=== PATIENT | male | born 1950 | race Caucasian/White ===

== ENCOUNTER 2017-11-29 08:40 | Emergency (ER) | payer MEDICARE, BC ==
[2017-11-29 08:49] VITALS: BP 169/109
[2017-11-29] MEDS ORDERED: Lidocaine/EPINEPHrine/Tetracaine Soln 1 ML TOP STA (09:35)
[2017-11-29] MEDS ORDERED: Lidocaine/EPINEPHrine/Tetracaine Soln 1 ML ONE (09:40)
--- NOTE | 2017-11-29 10:54 | EDM.PDOC ---
ED HPI GENERAL MEDICAL PROBLEM - General Chief Complaint: Laceration Stated Complaint: LEFT HAND LAC Time Seen by Provider: 11/29/17 09:28 Source of Information: Reports: Patient, Family () History Limitations: Reports: No Limitations - History of Present Illness INITIAL COMMENTS - FREE TEXT/NARRATIVE: The patient states that he was cutting some slipped ties with his freshly sharpened pocketknife around 08:00 this morning, when he accidentally cut the volar aspect of his left wrist. Patient is otherwise uninjured. The patient's last tetanus vaccination was approximately 2013. Patient's PCP is Dr. Armas. Left Hand Pain Score (Numeric/FACES): 2 - Related Data Allergies Allergy/AdvReac Type Severity Reaction Status Date / Time No Known Allergies Allergy Verified 11/29/17 08:49 Home Meds: Home Meds Lisinopril/Hydrochlorothiazide [Lisinopril-Hctz 10-12.5 mg Tab] 0.5 tab PO DAILY 02/23/15 [History] Past Medical History Cardiovascular History: Reports: Hypertension Oncologic (Cancer) History: Reports: Prostate - Past Surgical History Male Surgical History: Reports: Prostatectomy Social & Family History - Tobacco Use Smoking Status *Q: Never Smoker - Caffeine Use Caffeine Use: Reports: Coffee - Alcohol Use Alcohol Use History: Yes Days Per Week of Alcohol Use: 4 Number of Drinks Per Day: 2 Total Drinks Per Week: 8 Alcohol Use Frequency: Socially - Recreational Drug Use Recreational Drug Use: No - Living Situation & Occupation Living situation: Reports: , with Spouse Occupation: Employed ([employer]) ED ROS GENERAL - Review of Systems Review Of Systems: ROS reveals no pertinent complaints other than HPI. ED EXAM, SKIN/RASH Exam: See Below Exam Limited By: No Limitations General Appearance: Alert, WD/WN, No Apparent Distress Extremities: Other (Proximally 3.5 cm linear laceration perpendicular to the axis of the arm located at the volar aspect of the left wrist. The wound is full -thickness subcutaneous, however, appears to miss all flexor tendons and any significant blood vessels, as there is minimal bleeding. Neurovascular status of the left lower extremity is intact.) ED SKIN PROCEDURES - Laceration/Wound Repair Left Wrist Lac/Wound length In cm: 3.5 Appearance: Subcutaneous, Linear, Clean Distal NVT: Neuro & Vascular Intact, No Tendon Injury Anesthetic Type: Topical (LET) Skin Prep: Providone-Iodine (Betadine) Exploration/Debridement/Repair: Wound Explored, In a Bloodless Field, Explored to Base, No Foreign Material Found, Wound Margins Revised Closed with: Sutures Suture Size: 3-0 # of Sutures: 9 Suture Type: Nylon, Running Sterile Dressing Applied: Nurse Tetanus Status Addressed: Yes Complications: No Course - Vital Signs Last Recorded V/S: Last Vital Signs Temp 35.9 C 11/29/17 08:45 Pulse 54 L 11/29/17 08:45 Resp 16 11/29/17 08:45 BP 169/109 H 11/29/17 08:45 Pulse Ox 96 11/29/17 08:45 - Orders/Labs/Meds Meds: Medications Discontinued Medications Generic Name Dose Route Start Last Admin Trade Name Gunjan PRN Reason Stop Dose Admin Lidocaine/Tetracaine 2 ml 11/29/17 09:35 11/29/17 09:37 Let Soln TOP 11/29/17 09:36 2 ml ONETIME STA Administration Lidocaine/Tetracaine Confirm 11/29/17 09:40 11/29/17 10:07 Let Soln Administered 11/29/17 09:41 Not Given Dose 2 ml .ROUTE .STK-MED ONE - Re-Assessments/Exams Free Text/Narrative Re-Assessment/Exam: 11/29/17 10:49 Following adequate local anesthesia with LET, the patient's left wrist laceration was closed with 9 running sutures, using 3-0 Ethilon. The patient tolerated the procedure well. His tetanus vaccinations are up-to-date. Antibiotics are not indicated. Departure - Departure Time of Disposition: 10:50 Disposition: Home, Self-Care 01 Condition: Good Clinical Impression: Laceration of left wrist - Discharge Information Instructions: Laceration Care, Adult Referrals: Israel Bean MD [Primary Care Provider] - Forms: ED Department Discharge Additional Instructions: You were seen in the emergency room after accidentally cutting your left wrist. Your wound was closed with 9 sutures. Keep the wound clean with ordinary soap and water. Pat dry, then apply a clean bandage, daily. Change the bandage if it becomes dirty or wet. We do not recommend you apply antibiotic ointment. The sutures should be ready for removal by December. They can be removed at the walk-in clinic, by a nurse at your doctor's office, or back in the ER. If any other problems, including concern about infection, please do not hesitate to return to the ER.
== END 2017-11-29 11:00 | disposition home or self-care (01) ==
LOC: JD.ED 08:40
DX: S61.512A Laceration without foreign body of left wrist, initial encounter (principal); Z79.899 Other long term (current) drug therapy; W26.0XXA Contact with knife, initial encounter
CPT/HCPCS: 12002; 99283; A9270

== ENCOUNTER 2021-02-28 15:22 | Emergency (ER) | payer MEDICARE, BC ==
[2021-02-28 16:16] VITALS: BP 141/95; PULSE 50
--- NOTE | 2021-02-28 16:54 | EDM.PDOC ---
ED HPI GENERAL MEDICAL PROBLEM - General Chief Complaint: Head Injury Stated Complaint: LT EYE COMPLAINT Time Seen by Provider: 02/28/21 16:34 Source of Information: Reports: Patient, Family History Limitations: Reports: No Limitations - History of Present Illness INITIAL COMMENTS - FREE TEXT/NARRATIVE: Patient presents after fall off his horse injuring his left eye and forehead. This happened around noon today cannot remember exactly how his horse was to bucked and threw him off. He was not wearing a helmet. No loss of consciousness has no major headache he does have some neck pain although he has had some chronic neck pain and occasionally gets chiropractic adjustments. Otherwise was feeling well today no chest pain shortness of breath breathing problems. Denies any chest pain from the trauma no extremity pain such as shoulders elbows wrists hands pelvis hips knees and ankles. He is able to walk without difficulty. The final reason he came in was when he blows his nose he all of a sudden had swelling around the periorbital area. No vision loss no double vision no facial numbness no numbness to the teeth no malalignment or teeth pain. - Related Data Allergies Allergy/AdvReac Type Severity Reaction Status Date / Time No Known Allergies Allergy Verified 02/28/21 16:16 Home Meds: Home Meds cephALEXin [Keflex] 500 mg PO Q8H #21 cap 02/28/21 [Rx] hydroCHLOROthiazide [Hydrochlorothiazide] 12.5 mg PO DAILY 02/28/21 [History] lisinopriL [Lisinopril] 10 mg PO DAILY 02/28/21 [History] Past Medical History Cardiovascular History: Reports: Hypertension Other Musculoskeletal History: arthritis Oncologic (Cancer) History: Reports: Prostate - Past Surgical History Male Surgical History: Reports: Prostatectomy Social & Family History - Tobacco Use Tobacco Use Status *Q: Never Tobacco User Second Hand Smoke Exposure: No - Caffeine Use Caffeine Use: Reports: Coffee - Recreational Drug Use Recreational Drug Use: No - Living Situation & Occupation Living situation: Reports: , with Spouse Occupation: Employed ([employer]) ED ROS GENERAL - Review of Systems Review Of Systems: See Below Constitutional: Reports: No Symptoms. Denies: Diaphoresis HEENT: Reports: Glasses, Hearing Loss. Denies: Dental Pain, Ear Pain, Eye Discharge, Nosebleed, Rhinitis, Sinus Problem, Throat Pain, Throat Swelling, Vision Change Respiratory: Denies: Shortness of Breath, Cough Cardiovascular: Denies: Chest Pain, Dyspnea on Exertion, Lightheadedness GI/Abdominal: Denies: Abdominal Pain, Diarrhea, Nausea, Vomiting : Denies: Flank Pain Musculoskeletal: Reports: Neck Pain. Denies: Shoulder Pain, Arm Pain, Back Pain, Hand Pain, Leg Pain, Foot Pain, Joint Pain Neurological: Denies: Confusion, Dizziness, Headache, Numbness, Paresthesia, Tingling Psychiatric: Reports: No Symptoms ED EXAM, HEAD INJURY - Physical Exam Exam: See Below Exam Limited By: No Limitations General Appearance: Alert, WD/WN, No Apparent Distress Head: Normocephalic, Facial Swelling, Sinus Tenderness, Facial Tenderness, Other (Subcutaneous air around the periorbital area and the left pupils otherwise equal round and reactive, no nystagmus no diplopia tenderness in the superior orbital rim and some of the zygoma no crepitus noted there). No: Scalp Hematoma, Scalp Tenderness, Active Bleeding, Cooper's Sign, Facial Lacerations, Raccoon Eyes Nexus Criteria: No: Posterior, Midline Cervical Tenderness, Altered Level of Consciousness, Focal Neurological Deficit, Painful Distraction Injuries Ears: Normal External Exam, Cerumen Impaction Nose: Normal Inspection, No Blood. No: Nasal Tenderness, Septal Deformity, Septal Hematoma, Septal Perforation, Active Bleeding Throat/Mouth: Normal Inspection, Normal Lips, Normal Teeth, Normal Gums, Normal Oropharynx, Normal Voice. No: Trismus Neck: Limited Range of Motion, Muscle Spasm, Paraspinous Muscle Tender, Tender Lateral. No: Spinous Processes Tender, Tender Midline Respiratory: No Respiratory Distress, Lungs Clear, Normal Breath Sounds Cardiovascular: Normal Peripheral Pulses, Regular Rate, Rhythm, No Edema, No JVD GI/Abdominal Exam: Normal Bowel Sounds, Soft, Non-Tender Back Exam: Normal Inspection Extremities: Normal Inspection, Non-Tender. No: Joint Swelling Neurologic: tipple supervisor II-XII nml As Tested, No Motor/Sensory Deficits, Normal Mood/Affect, Oriented x 3 Course - Vital Signs Text/Narrative:: Head injury fall off a horse trauma alert called, no need for plain films we will send him for CT head CT maxillofacial and CT C-spine. Suspect he must of cracked his maxilla or a type of facial fracture based on the subcutaneous emphysema when he blows his nose. Other indication for any other chest trauma abdominal trauma flank trauma or other extremity injury Last Recorded V/S: Last Vital Signs Temp 98 F 02/28/21 16:14 Pulse 50 L 02/28/21 16:14 Resp 16 02/28/21 16:14 BP 141/95 H 02/28/21 16:14 Pulse Ox 94 L 02/28/21 16:14 - Radiology Interpretation Free Text/Narrative:: CT the head without contrast shows no acute evidence for intracranial hemorrhage no midline shift or mass-effect ventricles and basal cisterns are within normal limits visualized mastoid and nieces are normal CT cervical spine shows degenerative changes but otherwise no acute fracture or subluxation noted. CT maxillofacial showed slight blowout fracture within the inferior left orbit with mild descent of about 3.8 mm of the infraorbital floor sinus findings are most likely chronic with small amount of fluid otherwise no acute fracture is noted. - Re-Assessments/Exams Free Text/Narrative Re-Assessment/Exam: 02/28/21 18:30 I discussed the case with Dr. Alvarez the plastic surgeon on-call at [facility] recommends avoid blowing his nose or sneezing, keep the head of the bed elevated about 45 degrees to prevent any extra swelling, recommends I examination with ophthalmology or optometry otherwise will put in a referral to follow-up in the next week. Departure - Departure Time of Disposition: 18:30 Disposition: Home, Self-Care 01 Clinical Impression: Fracture of orbit Head injury due to trauma Qualifiers: Encounter type: initial encounter Qualified Code(s): S09.90XA - Unspecified injury of head, initial encounter - Discharge Information Prescriptions: cephALEXin [Keflex] 500 mg PO Q8H #21 cap Instructions: Head Injury, Adult Referrals: Israel Bean MD [Primary Care Provider] - Forms: ED Department Discharge Additional Instructions: Ice, Tylenol for pain, Keflex 500 mg 3 times a day for 7 days, avoid excessive blowing of the nose as this will cause more swelling around the eye. For the first few days try to set up at a 45 degree angle at night to sleep to prevent any changes in your vision or swelling. Recommend follow-up with Dr. Rubio/Dr. Cortés ([phone]) call tomorrow to the office to get a follow-up an appointment in about a week to make sure things healing appropriately. We also recommend you follow-up with your eye physician to make sure there is no traumatic injury to your left eye. Return if any increasing headache, double vision, blurry vision, nausea or vomiting, weakness, altered mental status or worsening condition. Sepsis Event Note (ED) - Evaluation Sepsis Screening Result: No Definite Risk - Focused Exam Vital Signs: Vital Signs Temp Pulse Resp BP Pulse Ox 02/28/21 16:14 98 F 50 L 16 141/95 H 94 L
--- NOTE | 2021-02-28 17:40 | CT ---
Head CT Technique: Multiple axial sections through the brain were obtained. Intravenous contrast was not utilized. Reconstructed coronal and sagittal images were also obtained. Comparison: No prior intracranial imaging is available. Findings: Ventricles along with basal cisterns and sulci over the convexities are within normal limits for the patient's age. No abnormal parenchymal densities are seen. No evidence of intracranial hemorrhage. No midline shift or mass-effect is seen. Bone window settings were reviewed. Visualized mastoid sinuses and paranasal sinuses show nothing acute. There is soft tissue air noted around the anterior left orbit as well as soft tissue swelling. Soft tissue mucosal thickening is also noted within the ethmoid sinuses and frontal sinuses. No acute calvarial abnormality is seen. Impression: 1. Facial findings as noted above which will be described on facial bone exam. 2. No acute intracranial abnormality is appreciated. Diagnostic code #2
--- NOTE | 2021-02-28 17:52 | CT ---
CT cervical spine Technique: Multiple axial sections were obtained from above C1 inferiorly to the bottom of T1. Reconstructed coronal and sagittal images were obtained. Comparison: No prior cervical spine imaging is available. Findings: Mild disc space narrowing is noted at C3-4. Fairly prominent disc space narrowing is seen at C4-5 and C5-6. Posterior osteophytes are noted at C3-4 through C5-6. Minimal degenerative change is noted between the dens and anterior arch of C1. Vertebral body heights are maintained. Minimal left-sided neural foraminal stenosis is noted at C3-4. Moderate bilateral neural foraminal stenosis is noted at C5-6. Moderate to severe bilateral neural foraminal stenosis is noted at C6-7. Other neural foramina appear to be patent. Mild scattered degenerative apophyseal change is seen. No acute fracture or acute subluxation is seen. Reconstructed AP view shows degenerative spurring within the uncovertebral joints at C3-4 and more prominent at C4-5 and C5-6. Impression: 1. Degenerative change as described above. 2. No acute fracture or abnormal subluxation is seen on CT study of the cervical spine. Diagnostic code #2
--- NOTE | 2021-02-28 17:53 | CT ---
CT facial bones Technique: Multiple axial sections through the facial bones were obtained. Reconstructed coronal and sagittal images were obtained. Findings: Diffuse soft tissue air is noted anterior to the left orbit and around the left orbit. Scattered soft tissue air is also seen within the left cheek. No focal fluid collections are seen to indicate hematoma. Minimal fluid is seen within the maxillary sinus. Mild mucosal thickening is seen within the ethmoid sinuses as well as a small amount of fluid within the frontal sinuses. There is a mild blowout fracture within the inferior left orbital floor. There is slight descent of about 3.8 mm of the inferior orbital floor. Small amount of air is noted in a retroconal location within the left orbit from this fracture. Impression: 1. Slight blowout fracture within the inferior left orbit with mild descent of about 3.8 mm of the inferior orbital floor. 2. Sinus findings which are most likely chronic. Small amount of fluid which is likely acute. 3. No other acute fracture is appreciated on CT study of the facial bones. Diagnostic code #3
== END 2021-02-28 18:36 | disposition home or self-care (01) ==
LOC: JD.ED 15:22
DX: S02.85XA Fracture of orbit, unspecified, initial encounter for closed fracture (principal); I10 Essential (primary) hypertension; Z79.899 Other long term (current) drug therapy; V80.010A Animal-rider injured by fall from or being thrown from horse in noncollision accident, initial encounter; S09.8XXA Other specified injuries of head, initial encounter
CPT/HCPCS: 70450; 70450-26; 70486; 70486-26; 72125; 72125-26; 99284; 99284-25

== ENCOUNTER 2022-11-03 11:19 | Inpatient (IN) | payer MEDICARE, BC ==
[2022-11-03] MEDS ORDERED: Sodium Chloride 0.9% 10 ML Syringe FLUSH PRN ×2 (11:35→13:19)
[2022-11-03] MEDS ORDERED: Sodium Chloride 0.9% 1,000 ML IV STA (11:47)
[2022-11-03] MEDS ORDERED: Diltiazem 25 MG/5 ML SDV IVPUSH ONE (11:47)
[2022-11-03] MEDS: Diltiazem 125 MG in Sodium Chloride 0.9% 100 ML IV SCH (12:01)
[2022-11-03] MEDS ORDERED: oxyCODONE 5 MG Tab PO PRN (13:19)
[2022-11-03] MEDS ORDERED: Docusate Sodium 100 MG Cap PO PRN (13:19)
[2022-11-03] MEDS ORDERED: Ondansetron 4 MG Tab.DIS PO PRN (13:19)
[2022-11-03] MEDS ORDERED: Acetaminophen 325 MG Tab PO PRN (13:19)
[2022-11-03] MEDS: Sodium Chloride 0.9% 1,000 ML IV SCH ×2 (14:42→20:14)
[2022-11-03] MEDS: Sodium Chloride 0.65% Nasal Spray 45 ML Bottle NAS SCH ×3 (14:43→23:50)
[2022-11-03] MEDS: Apixaban 5 MG Tab PO SCH (20:14)
[2022-11-03] MEDS: Temazepam 15 MG Cap PO PRN (20:14)
[2022-11-04] MEDS: Sodium Chloride 0.65% Nasal Spray 45 ML Bottle NAS SCH ×7 (00:35→21:06)
[2022-11-04] MEDS: Diltiazem 125 MG in Sodium Chloride 0.9% 100 ML IV SCH (00:35)
[2022-11-04] MEDS: Sacubitril/Valsartan 1 EACH Tablet PO SCH ×2 (08:06→20:47)
[2022-11-04] MEDS: Furosemide 20 MG Tab PO SCH (08:06)
[2022-11-04] MEDS: Apixaban 5 MG Tab PO SCH ×2 (08:06→20:47)
[2022-11-04] MEDS: Digoxin 500 MCG/2 ML Amp IVPUSH SCH ×3 (09:46→20:50)
[2022-11-04] MEDS: Carvedilol 3.125 MG Tab PO SCH (20:47)
[2022-11-04] MEDS: Temazepam 15 MG Cap PO PRN (21:06)
[2022-11-05] MEDS: Sodium Chloride 0.65% Nasal Spray 45 ML Bottle NAS SCH ×4 (03:21→10:34)
[2022-11-05] MEDS: Apixaban 5 MG Tab PO SCH (08:00)
[2022-11-05] MEDS: Furosemide 20 MG Tab PO SCH (08:00)
[2022-11-05] MEDS: Carvedilol 3.125 MG Tab PO SCH (08:00)
[2022-11-05] MEDS: Sacubitril/Valsartan 1 EACH Tablet PO SCH (08:00)
[2022-11-05] MEDS ORDERED: Digoxin 500 MCG/2 ML Amp IVPUSH SCH (09:00)
[2022-11-05 09:14] VITALS: BP 102/82; PULSE 105
== END 2022-11-05 09:56 | DRG 308 ==
LOC: JD.ED 11:19 → JD.ICU 13:19
PROVIDERS: ADMIT Internal Medicine; ATTEND Internal Medicine
DX: I48.91 Unspecified atrial fibrillation (principal); I50.21 Acute systolic (congestive) heart failure; I50.9 Heart failure, unspecified; Z20.822 Contact with and (suspected) exposure to COVID-19; I11.0 Hypertensive heart disease with heart failure; Z79.899 Other long term (current) drug therapy
CPT/HCPCS: 36415; 71046; 80053; 83735; 83880; 84484; 85025; 85379; 93005; 96361; 96374; 99285; J3490 ×3; J7030; 80162; 93010; 93307; A9270-GY; J1160; U0002

== ENCOUNTER 2023-02-17 20:40 | Emergency (ER) | payer MEDICARE, BC ==
[2023-02-17 21:10] LABS: BASOPHILS ABSOLUTE AUTO 0.08 K/mm3 (0.01-0.08); BASOPHILS PERCENT AUTO 1.4 % (0.1-1.2); EOSINOPHILS ABSOLUTE AUTO 0.33 K/mm3 (0.04-0.54); EOSINOPHILS PERCENT AUTO 5.6 (0.8-7.0); HEMATOCRIT 42.4 % (40.1-51.0); HEMOGLOBIN 14.4 gm/dl (13.7-17.5); IMMATURE GRAN ABSOLUTE AUTO 0.01 K/mm3 (0.00-0.10); IMMATURE GRAN PERCENT AUTO 0.2 % (<=1.0); LYMPHOCYTES ABSOLUTE AUTO 1.26 K/mm3 (1.32-3.57); LYMPHOCYTES PERCENT AUTO 21.5 % (21.8-53.1); MEAN CORPUSCULAR HEMOGLOBIN 30.4 pg (25.7-32.2); MEAN CORPUSCULAR VOLUME 89.6 fl (79.0-92.2); MEAN PLATELET VOLUME 9.3 fl (9.4-12.3); MONOCYTES ABSOLUTE AUTO 0.42 K/mm3 (0.30-0.82); MONOCYTES PERCENT AUTO 7.2 % (5.3-12.2); NEUTROPHILS ABSOLUTE AUTO 3.75 K/mm3 (1.78-5.38); NEUTROPHILS PERCENT AUTO 64.1 % (34.0-67.9); PLATELET COUNT,PLT 210 K/mm3 (163-337); RED BLOOD CELL COUNT 4.73 M/mm3 (4.63-6.08); WHITE BLOOD CELL COUNT,WBC 5.85 K/mm3 (4.23-9.07)
[2023-02-17 21:49] LABS: A/G RATIO 1.1 (1-2); ALBUMIN 3.4 g/dl (3.4-5.0); ANION GAP 13.7 (5-15); BILIRUBIN TOTAL 0.5 mg/dL (0.2-1.0); BUN/CREATININE RATIO 19.2 (14-18); CALCIUM 8.5 mg/dL (8.5-10.1); CREATININE 1.2 mg/dL (0.7-1.3); EST CRCL DRUG DOSING (CG) 66.6 mL/min; MAGNESIUM 1.9 mg/dL (1.8-2.4); POTASSIUM,K 3.7 mEq/L (3.5-5.1); PROTEIN TOTAL,TP 6.5 g/dl (6.4-8.2); TSH 6.582 uIU/mL (0.358-3.74)
[2023-02-18 00:42] VITALS: BP 145/72; PULSE 40
== END 2023-02-18 00:41 | disposition home or self-care (01) ==
LOC: JD.ED 20:40
DX: R00.1 Bradycardia, unspecified (principal); I11.0 Hypertensive heart disease with heart failure; I50.9 Heart failure, unspecified; I48.91 Unspecified atrial fibrillation; Z79.01 Long term (current) use of anticoagulants; Z79.02 Long term (current) use of antithrombotics/antiplatelets; Z79.899 Other long term (current) drug therapy
CPT/HCPCS: 36415; 71045; 71045-26; 80053; 80162; 83735; 84443; 85025; 93005; 93010; 99283; 99284